=== PATIENT | female | born 1950 | race African-American/Black ===

== ENCOUNTER 2016-07-24 16:12 | Outpatient (CLI) | payer MEDICARE ==
--- NOTE | 2016-07-24 22:30 | RAD ---
CHEST TWO VIEWS: Date: 07-24-16 FINDINGS: The heart is normal in size and the lungs are clear. No infiltrate or effusion was seen. Faint calci fication is seen in the aortic arch. The mediastinum appears normal and the trachea is midline. Ther e are no bony findings of concern. IMPRESSION: No acute thoracic findings. Faint calcification in the aortic arch. POS: HOME
== END 2016-07-24 16:13 | disposition home or self-care (01) ==
LOC: BURRAD 16:12
PROVIDERS: ATTEND Nurse Practitioner Family
DX: Z01.818 Encounter for other preprocedural examination (principal); I70.0 Atherosclerosis of aorta
CPT/HCPCS: 71020